=== PATIENT | male | born 1990 | race Caucasian/White ===

== ENCOUNTER 2020-11-20 17:31 | Emergency (ER) | payer MEDICAID ==
[~2020-11-20] VITALS: Ht 167.6 cm; Wt 83.3 kg
[2020-11-20 17:36] VITALS: BP 145/73
[2020-11-20] MEDS ORDERED: ketorolac tromethamine 15mg/ml inj. IM ONE (18:20)
[2020-11-20] MEDS ORDERED: ondansetron 4mg rapidly disintigrating tab PO ONE (18:20)
[2020-11-20] MEDS ORDERED: HYDROcodone/acetaminophen 5mg/325mg tablet PO ONE (18:20)
[2020-11-20] MEDS ORDERED: ONDA4TAB6 PO (19:17)
[2020-11-20] MEDS ORDERED: HYDR-3965 PO (19:17)
[2020-11-20] MEDS ORDERED: IBUP-1984 PO (19:17)
== END 2020-11-20 19:33 | disposition home or self-care (01) ==
LOC: ER 17:32
DX: S52.124A Nondisplaced fracture of head of right radius, initial encounter for closed fracture (principal); M25.521 Pain in right elbow; Z79.899 Other long term (current) drug therapy; V00.131A Fall from skateboard, initial encounter; Y93.89 Activity, other specified; Y92.89 Other specified places as the place of occurrence of the external cause; Y99.8 Other external cause status
CPT/HCPCS: 29105; 73030; 73080; 73090; 99284